=== PATIENT | female | born 1965 | race Caucasian/White ===

== ENCOUNTER 2018-07-26 21:57 | Emergency (ER) | payer SELFPAY ==
[~2018-07-26 21:57] MED LIST: INFL100V IV
== END 2018-07-26 22:00 | disposition left against medical advice (07) ==
LOC: ER 21:57
DX: R10.11 Right upper quadrant pain (principal); R10.12 Left upper quadrant pain; Z53.21 Procedure and treatment not carried out due to patient leaving prior to being seen by health care provider